=== PATIENT | male | born 1965 ===

== ENCOUNTER 2018-06-25 21:27 | Emergency (ER) | payer OTHER ==
[2018-06-25] MEDS ORDERED: Albuterol-Ipratrop 3 mg / 0.5 (3 ml) UD IH STA ×3 (21:53)
[2018-06-25] MEDS ORDERED: Albuterol-Ipratrop 3 mg / 0.5 (3 ml) UD ONE (21:55)
--- NOTE | 2018-06-25 21:58 | ED PDOC ---
HPI: SOB/CHF/COPD Time Seen by Provider: 06/25/18 21:45 Chief Complaint (Nursing): Cough, Cold, Congestion Chief Complaint (Provider): shortness of breath History Per: Patient History/Exam Limitations: no limitations Onset/Duration Of Symptoms: Days (2 weeks) Current Symptoms Are (Timing): Still Present Additional Complaint(s): 52 y/o male history of asthma presents for evaluation of wheezing and shortness of breath x 2 weeks. Associated cough, intermittent sputum production. Patient states symptoms similar to previous asthma exacerbations, no improvement with i nhaler or nebulizer. Denies fever, nausea/vomiting, nasal congestion/discharge, chest pain, palpitations, leg pain/swelling, recent travel. Past Medical History Reviewed: Historical Data, Nursing Documentation, Vital Signs Vital Signs: Last Vital Signs Temp 97.8 F 06/25/18 21:33 Pulse 88 06/25/18 21:33 Resp 16 06/25/18 21:33 BP 137/82 06/25/18 21:33 Pulse Ox 94 L 06/25/18 21:33 - Medical History PMH: Asthma - Surgical History Surgical History: No Surg Hx - Family History Family History: States: No Known Family Hx - Home Medications Home Medications: Ambulatory Orders Medication Instructions Recorded Albuterol HFA [Ventolin HFA 90 1 puff IH Q4 PRN #1 inh 06/25/18 mcg/actuation (8 g)] predniSONE [Prednisone] 60 mg PO DAILY #12 tab 06/25/18 - Allergies Allergies/Adverse Reactions: Allergies Allergy/AdvReac Type Severity Reaction Status Date / Time No Known Allergies Allergy Verified 06/25/18 21:33 Review of Systems ROS Statement: Except As Marked, All Systems Reviewed And Found Negative Respiratory: Positive for: Cough, Shortness of Breath, Wheezing Physical Exam - Reviewed Nursing Documentation Reviewed: Yes Vital Signs Reviewed: Yes - Physical Exam Appears: Positive for: Well, Non-toxic, No Acute Distress Head Exam: Positive for: ATRAUMATIC, NORMAL INSPECTION, NORMOCEPHALIC Skin: Positive for: Normal Color Eye Exam: Positive for: Normal appearance ENT: Positive for: Normal ENT Inspection Cardiovascular/Chest: Positive for: Regular Rate, Rhythm Respiratory: Positive for: Wheezing (diffuse expiratory wheezing) Gastrointestinal/Abdominal: Positive for: Normal Exam Back: Positive for: Normal Inspection Extremity: Positive for: Normal ROM Neurologic/Psych: Positive for: Alert, Oriented (x3) - ECG ECG: Positive for: Viewed By Me (reviewed by ED attending) ECG Rhythm: Positive for: Sinus Rhythm, Nonspecific Changes O2 Sat by Pulse Oximetry: 94 - Progress ED Course And Treament: -duoneb x 3 -IV solumedrol On re-eval, patient states he is feeling better. Wheezing improved Patient educated on findings, discharged with rx Albuterol HFA, Prednisone Advised follow up PMD within 2-3 days Return precautions given Disposition - Clinical Impression Clinical Impression: Asthma exacerbation - Patient ED Disposition Is Patient to be Admitted: No Counseled Patient/Family Regarding: Studies Performed, Diagnosis, Need For Followup, Rx Given - Disposition Referrals: [facility] [place] [facility] [Outside] Disposition: Routine/Home Disposition Time: 23:26 Condition: IMPROVED Prescriptions: Albuterol HFA [Ventolin HFA 90 mcg/actuation (8 g)] 1 puff IH Q4 PRN #1 inh PRN Reason: Wheezing predniSONE [Prednisone] 60 mg PO DAILY #12 tab Instructions: Asthma in Adults Forms: [facility] (Khmer)
[2018-06-25 23:24] VITALS: RESP 18
[2018-06-26 06:41] VITALS: BP 121/68; PULSE 81; TEMP 98.2; O2SAT 96
--- NOTE | 2018-06-26 10:23 | CARD ---
APPROVED REPORT Date of service: 06/25/2018 EKG Measurement Heart [id number] <Conclusion> Normal sinus rhythm ST & T wave abnormality, consider inferior ischemia Abnormal ECG
== END 2018-06-25 23:35 | disposition home or self-care (01) ==
LOC: H.ER 21:27
DX: J45.901 Unspecified asthma with (acute) exacerbation (principal)
CPT/HCPCS: 93005; 94150; 94640; 96374; 99285; J2930

== ENCOUNTER 2018-08-02 07:16 | Emergency (ER) | payer OTHER ==
[2018-08-02 07:25] VITALS: BMI 27.1
[2018-08-02] MEDS ORDERED: Albuterol-Ipratrop 3 mg / 0.5 (3 ml) UD ONE ×2 (07:59→09:15)
[2018-08-02] MEDS ORDERED: Albuterol-Ipratrop 3 mg / 0.5 (3 ml) UD INH STA ×3 (08:16→08:30)
--- NOTE | 2018-08-02 08:29 | ED PDOC ---
HPI: SOB/CHF/COPD Time Seen by Provider: 08/02/18 08:13 Chief Complaint (Nursing): Shortness Of Breath Chief Complaint (Provider): Shortness of breath History Per: Patient, Family History/Exam Limitations: no limitations Onset/Duration Of Symptoms: Hrs Current Symptoms Are (Timing): Still Present Current Respiratory Medications: See Home Med List Additional History Per: Patient Additional Complaint(s): 52yo male with history of asthma, comes to ER reporting shortness of breath, unrelieved by nebulizer treatment at home. Patient additionally reports feeling febrile at home but did not take his temperature. Patient denies any history of intubation or hospitalization due to asthma exacerbation. Of note, patient prefers IV solumedrol over PO prednisone as "the pills dont help as much" PMD: None provided Past Medical History Reviewed: Historical Data, Nursing Documentation, Vital Signs Vital Signs: Last Vital Signs Temp 98.8 F 08/02/18 07:25 Pulse 98 H 08/02/18 07:25 Resp 19 08/02/18 07:35 BP 103/63 08/02/18 07:25 Pulse Ox 92 L 08/02/18 07:35 - Medical History PMH: Asthma - Surgical History Surgical History: No Surg Hx - Family History Family History: States: No Known Family Hx - Home Medications Home Medications: Ambulatory Orders Medication Instructions Recorded RX: Albuterol HFA [Ventolin HFA 90 1 puff IH Q4 PRN #1 inh 06/25/18 mcg/actuation (8 g)] predniSONE [Prednisone] 60 mg PO DAILY #12 tab 06/25/18 Albuterol Sulfate [Ventolin Hfa] 1 puff IH Q4 #1 ml 08/02/18 Peak Flow Meter/INH Assit Dev 1 each MC Q4 #1 kit 08/02/18 [Aerogear Asthma Action Kit] RX: Prednisone [Deltasone] 40 mg PO DAILY #8 tablet 08/02/18 - Allergies Allergies/Adverse Reactions: Allergies Allergy/AdvReac Type Severity Reaction Status Date / Time No Known Allergies Allergy Verified 06/25/18 21:33 Review of Systems ROS Statement: Except As Marked, All Systems Reviewed And Found Negative Constitutional: Positive for: Fever Cardiovascular: Negative for: Chest Pain Respiratory: Positive for: Shortness of Breath Physical Exam - Reviewed Nursing Documentation Reviewed: Yes Vital Signs Reviewed: Yes - Physical Exam Appears: Positive for: Non-toxic Head Exam: Positive for: ATRAUMATIC, NORMAL INSPECTION, NORMOCEPHALIC Skin: Positive for: Normal Color, Warm Eye Exam: Positive for: Normal appearance, EOMI, PERRL Neck: Positive for: Normal, Supple Cardiovascular/Chest: Positive for: Regular Rate, Rhythm Respiratory: Positive for: Wheezing (left > right), Other (good air entry) Gastrointestinal/Abdominal: Positive for: Normal Exam, Soft Back: Positive for: Normal Inspection Extremity: Positive for: Normal ROM. Negative for: Pedal Edema Neurologic/Psych: Positive for: Alert, Oriented. Negative for: Motor/Sensory Deficits - Laboratory Results Result Diagrams: 08/02/18 10:00 08/02/18 10:00 - ECG O2 Sat by Pulse Oximetry: 92 (RA) Medical Decision Making Medical Decision Making: Workup for acute asthma exacerbation Plan: -- Duoneb 3ml INH x 3 -- Solumedrol 125mg IV 1021 Patient reports persistent SOB, IV Magnesium ordered 1115 Labs reviewed, within normal limits. Patient improved with IV magnesium Return parameters discussed, and instructed to follow up with PMD in 2-3 days. Scribe Attestation: Documented by Berta Sanches acting as a scribe for Juliana Munguia MD Provider Attestation: All medical record entries made by the Scribe were at my direction and personally dictated by me. I have reviewed the chart and agree that the record accurately reflects my personal performance of the history, physical exam, medical decision making, and the department course for this patient. I have also personally directed, reviewed, and agree with the discharge instructions and disposition. Disposition - Clinical Impression Clinical Impression: Asthma exacerbation - Disposition Referrals: [facility] [place] [Outside] FAMILY PROVIDER,NO [Primary Care Provider] - Disposition: Routine/Home Disposition Time: 11:15 Condition: IMPROVED Prescriptions: Albuterol Sulfate [Ventolin Hfa] 1 puff IH Q4 #1 ml Peak Flow Meter/INH Assit Dev [Aerogear Asthma Action Kit] 1 each MC Q4 #1 kit RX: Prednisone [Deltasone] 40 mg PO DAILY #8 tablet Instructions: Asthma, Adult (DC) Forms: [facility] (Croatian) Print Language: PORTUGUESE
[2018-08-02 09:58] VITALS: BP 107/60; RESP 22; TEMP 99
[2018-08-02] MEDS ORDERED: Magnesium Sulfate 2 gm/50 ml 2 GM/50 ML BAG IVPB STA (10:21)
[2018-08-02] MEDS ORDERED: Magnesium Sulfate 2 gm/50 ml 2 GM/50 ML BAG ONE (10:31)
[2018-08-02 10:43] VITALS: PULSE 96
[2018-08-02 10:46] LABS: BASO # 0.1 K/uL (0.0-0.2); BASO % 0.6 % (0.0-2.0); EOS # 0.3 K/uL (0.0-0.7); EOS % 3.4 % (0.0-4.0); HEMOGLOBIN 16.7 g/dL (12.0-18.0); LYMPH # 0.9 K/uL (1.0-4.3); LYMPH % 8.7 % (20.0-40.0); MEAN CELL VOLUME 91.4 fl (80.0-94.0); MEAN CORPUSCULAR HEMOGLOBIN 30.6 pg (27.0-31.0); MEAN CORPUSCULAR HGB CONC 33.5 g/dL (33.0-37.0); MEAN PLATELET VOLUME 7.9 fl (7.2-11.7); MONO # 0.8 K/uL (0.0-0.8); MONO % 7.7 % (0.0-10.0); NEUT # 8.1 K/uL (1.8-7.0); NEUT % 79.6 % (50.0-75.0); NRBC % 0.1 % (0.0-0.0); PLATELET COUNT 228 K/uL (130-400); RBC 5.47 Mil/uL (4.40-5.90); RED CELL DISTRIBUTION WIDTH 14.8 % (11.5-14.5); WHITE BLOOD COUNT 10.1 K/uL (4.8-10.8)
[2018-08-02 11:07] LABS: BLOOD UREA NITROGEN 15 mg/dl (9-20); CALCIUM 9.9 mg/dL (8.4-10.2); GFR NON-AFRICAN AMERICAN > 60
[2018-08-02 11:17] VITALS: O2SAT 92
[2018-08-02 11:31] LABS: BANDS 5 % (0-2); EOSINOPHIL 4 % (0-7); LYMPHOCYTE 4 % (20-50); MONOCYTE 9 % (0-10); NEUTROPHIL 78 % (42-75); PLATELET ESTIMATE NORMAL (NORMAL); TOTAL CELLS COUNTED 100
[2018-08-02 11:33] LABS: MICROCYTOSIS SLIGHT
--- NOTE | 2018-08-02 14:31 | RAD ---
Date of service: 08/02/2018 HISTORY: cough COMPARISON: No prior. TECHNIQUE: Chest PA and lateral FINDINGS: LUNGS: No active pulmonary disease. PLEURA: No significant pleural effusion identified. No pneumothorax apparent. CARDIOVASCULAR: No aortic atherosclerotic calcification present. Normal cardiac size. No pulmonary vascular congestion. OSSEOUS STRUCTURES: No significant abnormalities. VISUALIZED UPPER ABDOMEN: Normal. OTHER FINDINGS: None. IMPRESSION: No active disease.
== END 2018-08-02 11:29 | disposition home or self-care (01) ==
LOC: SUPCPDRO 07:16 → H.ER 07:16
DX: J45.901 Unspecified asthma with (acute) exacerbation (principal)
CPT/HCPCS: 71046; 80048; 85025; 94640; 96374; 96375; 99284; J2930

== ENCOUNTER 2018-09-02 19:24 | Emergency (ER) | payer SELFPAY ==
[2018-09-02 19:24] VITALS: BMI 27.1
[2018-09-02 20:10] VITALS: BP 146/91; PULSE 71; RESP 18; TEMP 97.9; O2SAT 95
[2018-09-02] MEDS ORDERED: Albuterol 0.083% Inhal Sol (2.5 mg/3 mL) UD INH STA (20:11)
[2018-09-02] MEDS ORDERED: Albuterol-Ipratrop 3 mg / 0.5 (3 ml) UD INH STA ×2 (20:11→20:13)
[2018-09-02] MEDS ORDERED: Albuterol 0.083% Inhal Sol (2.5 mg/3 mL) UD ONE (20:18)
[2018-09-02] MEDS ORDERED: Albuterol-Ipratrop 3 mg / 0.5 (3 ml) UD ONE (20:19)
--- NOTE | 2018-09-02 20:27 | ED PDOC ---
History of Present Illness History of Present Illness: 53 year old male with a history of asthma presents to the ER for evaluation of an asthma exacerbation ongoing for the past 3 to 4 days. Patient reports using his pump at home with no relief and states last time he used it was 4 hours ago. He denies history of intubation for his asthma but reports taking steroid 3 months ago. Patient denies other complaints, fever, chest pain, tobacco use and history of cancer. PMD: None provided HPI: Influenza Time Seen by Provider: 09/02/18 20:10 Chief Complaint: Shortness Of Breath Chief Complaint (Provider): Asthma Exacerbation History Per: Patient Exam Limitations: no limitations Onset/Duration Of Symptoms: Days (3-4) Symptoms include: denies: fever, chest pain Past Medical History Reviewed: Historical Data, Nursing Documentation, Vital Signs Vital Signs: Last Vital Signs Temp 97.9 F 09/02/18 20:08 Pulse 71 09/02/18 20:08 Resp 18 09/02/18 20:08 BP 146/91 H 09/02/18 20:08 Pulse Ox 95 09/02/18 20:08 - Medical History PMH: Asthma - Surgical History Surgical History: No Surg Hx - Family History Family History: States: Unknown Family Hx - Social History Current smoker - smoking cessation education provided: No Alcohol: None Drugs: Denies - Home Medications Home Medications: Ambulatory Orders Medication Instructions Recorded Albuterol HFA [Ventolin HFA 90 1 puff IH Q4 PRN #1 inh 06/25/18 mcg/actuation (8 g)] predniSONE [Prednisone] 60 mg PO DAILY #12 tab 06/25/18 Albuterol Sulfate [Ventolin Hfa] 1 puff IH Q4 #1 ml 08/02/18 Peak Flow Meter/INH Assit Dev 1 each MC Q4 #1 kit 08/02/18 [Aerogear Asthma Action Kit] Prednisone [Deltasone] 40 mg PO DAILY #8 tablet 08/02/18 Albuterol Sulfate [Ventolin Hfa] 1 puff IH Q4 PRN #1 unit 09/02/18 predniSONE [predniSONE Tab] 2 tab PO DAILY #8 tab 09/02/18 - Allergies Allergies/Adverse Reactions: Allergies Allergy/AdvReac Type Severity Reaction Status Date / Time No Known Allergies Allergy Verified 06/25/18 21:33 Review of Systems ROS Statement: Except As Marked, All Systems Reviewed And Found Negative Constitutional: Negative for: Fever Cardiovascular: Negative for: Chest Pain Respiratory: Positive for: Other (Asthma exacerabtion) Physical Exam - Reviewed Nursing Documentation Reviewed: Yes Vital Signs Reviewed: Yes - Physical Exam Comments: GENERAL APPEARANCE: Patient is awake, alert, oriented x 3, in no acute distress. Resting comfortably. SKIN: Warm, dry; (-) cyanosis. EYES: (-) conjunctival injection ENMT: Mucous membranes moist. Airway patent: (-) stridor. Pharynx: clear, uvula midline (-) swelling, (-) erythema. NECK: Supple, FROM CHEST AND RESPIRATORY: (+) inspiratory wheezing (-) rales, (-) rhonchi; breath sounds equal bilaterally. Respirations even and nonlabored, speaking in full sentences. HEART AND CARDIOVASCULAR: (-) irregularity ABDOMEN AND GI: Soft; (-) tenderness. EXTREMITIES: (-) deformity, (-) edema (-) calf tenderness. NEURO AND PSYCH: Mental status as above; (-) focal findings. Gait: steady. Speech: clear. (-) facial asymmetry Medical Decision Making Medical Decision Making: Time: 2009 Initial impression: asthma exacerbation, shortness of breath. Initial plan: --Duoneb 3 ml INH x2 --Albuterol 3ml INH --Prednisone 60 mg PO --Re-evaluation 2124 On re-evaluation, patient reports improvement of symptoms. On exam, patient remains AAOx3, in no acute distress. Lungs clear to auscultation, cardiac RRR. Vitals stable. Lab/Diagnostic results d/w the patient in great detail. Diagnosis of asthma exacerbation, SOB- resolved d/w the patient. Based on history, exam and diagnostic results, plan will be for outpatient follow up with PMD/clinic. Patient instructed to follow-up with pmd / referral provided / the clinic in 1- 2 days without fail. Advised to take medication as prescribed. Return to the emergency room at any time for any new or worsening symptoms. Patient states he fully agrees with and understands discharge instructions. States that he agrees with the plan and disposition. Verbalized and repeated discharge instructions and plan. I have given the patient opportunity to ask any additional questions. Scribe Attestation: Documented by Destiney Mason acting as a scribe for Juliana Jane PA-C. Provider Scribe Attestation: All medical record entries made by the Scribe were at my direction and personally dictated by me. I have reviewed the chart and agree that the record accurately reflects my personal performance of the history, physical exam, medical decision making, and the department course for this patient. I have also personally directed, reviewed, and agree with the discharge instructions and disposition. - ECG O2 Sat by Pulse Oximetry: 95 (RA) Pulse Ox Interpretation: Normal Disposition - Clinical Impression Clinical Impression: Asthma exacerbation, Shortness of breath - Patient ED Disposition Is Patient to be Admitted: No Counseled Patient/Family Regarding: Studies Performed, Diagnosis, Need For Followup, Rx Given - Disposition Referrals: [facility] [Outside] Disposition: Routine/Home Disposition Time: 21:25 Condition: STABLE Additional Instructions: The emergency medical care you received today was directed at your acute symptoms. If you were prescribed any medication, please fill it and take as directed. It may take several days for your symptoms to resolve. Return to the Emergency Department if your symptoms worsen, do not improve, or if you have any other problems. Please contact your doctor in 2 days for re-evaluation and follow up / or call one of the physicians/clinics you have been referred to that are listed on the Patient Visit Information form that is included in your discharge packet. Bring any paperwork you were given at discharge with you along with any medications you are taking to your follow up visit. Our treatment cannot replace ongoing medical care by a primary care provider (PCP) outside of the emergency department. Prescriptions: Albuterol Sulfate [Ventolin Hfa] 1 puff IH Q4 PRN #1 unit PRN Reason: Shortness Of Breath predniSONE [predniSONE Tab] 2 tab PO DAILY #8 tab Instructions: Asthma in Adults, Shortness of Breath (Dyspnea) (DC), Medicines for Asthma Forms: [facility] (Japanese) Print Language: TAMAZIGHT - POA Present On Arrival: None
== END 2018-09-02 22:15 | disposition home or self-care (01) ==
LOC: H.ER 19:24
DX: J44.1 Chronic obstructive pulmonary disease with (acute) exacerbation (principal); R06.02 Shortness of breath